=== PATIENT | female | born 1990 | race Hispanic/Latino ===

== ENCOUNTER 2021-07-26 16:30 | Outpatient (CLI) | payer BC, SELFPAY ==
--- NOTE | ~2021-07-26 | US_ITS ---
EXAMINATION: US OB follow up DATE: 07/26/2021 17:31 INDICATION: Establish dating and viability of an early second trimester . TECHNIQUE: Real-time pelvic ultrasound utilizing both a transvaginal and transabdominal probe was pe rformed. The interpreting radiologist was not present for the study. COMPARISON: None. FINDINGS: The uterus measures 12.4 x 11.4 x 9.3 cm. There is an intrauterine gestational sac. Gestational sac with a single fetus in transverse lie with vertex to maternal right. The crown rump length measures 8 .5 cm, which correlates with an estimated gestational age of 14 weeks and 3 days. heart motion is identified measuring 159 beats per minute (bpm) by M-mode Doppler. The placenta is posterior and l ow-lying with caudal margin 1.4 cm from the internal cervical os. The right and left ovaries are not visualized. There is no free fluid in the pelvis. IMPRESSION: 1. Single living fetus with heart rate of 159 bpm. 2. Gestational age by ultrasound of 14 weeks 3 day(s) +/- 1 week and 2 day(s) with ultrasound estima evangelist date of delivery (WILLIAM) of 01/21/2022. Reviewed, dictated and finalized at location A. [facility]NA[facility] PROCESS IMPRESSION: 1. Single living fetus with heart rate of 159 bpm. 2. Gestational age by ultrasound of 14 weeks 3 day(s) +/- 1 week and 2 day(s) with ultrasound estimated date of delivery (WILLIAM) of 01/21/2022.
== END 2021-07-26 16:31 | disposition home or self-care (01) ==
PROVIDERS: PCP Obstetrics & Gynecology; Visit Provider Obstetrics & Gynecology
DX: Z34.92 Encounter for supervision of normal pregnancy, unspecified, second trimester (principal); Z3A.14 14 weeks gestation of pregnancy
CPT/HCPCS: 76816

== ENCOUNTER 2022-01-09 03:56 | Inpatient (IN) | payer OTHER, SELFPAY ==
[2022-01-09] VITALS (117 sets, daily range): BP systolic 102–152; BP diastolic 61–112; PULSE 76–283; RESP 16–18; TEMP 36.2–37; O2SAT 95–100; BMI 28.0
[2022-01-09 04:36] LABS: Basophils Percent Auto 0.3 % (0.2-1.2); Eosinophils Absolute Auto 0.1 K/mm3 (0-0.3); Eosinophils Percent Auto 1.1 % (0-4.4); Hematocrit 41.4 % (37.0-47.0); Hemoglobin 13.7 g/dL (12.0-15.0); Immature Granulocyte Absolute 0.08 K/mm3 (0.00-0.031); Immature Granulocyte Percent A 0.7 % (0-0.5); Lymphocytes Absolute Auto 1.93 K/mm3 (0.9-3.2); Mean Corpuscular HGB Conc 33.1 g/dl (32-36); Mean Corpuscular Volume 87.7 fl (80-100); Mean Platelet Volume 10.1 fl (7.4-10.4); Monocytes Absolute Auto 0.7 K/mm3 (0.1-0.6); Monocytes Percent Auto 5.7 % (2.6-8.5); Neutrophils Absolute Auto 8.5 K/mm3 (1.3-6.7); Neutrophils Percent Auto 75.2 % (45.5-73.1); Platelet Count Result 266 k/mm3 (150-375); Red Blood Count 4.72 M/mm3 (4.2-5.4); Red Cell Distribution Width 13.7 % (11.5-14.5); White Blood Count 11.3 K/mm3 (4.5-10.0)
[2022-01-09] MEDS: LACTATED RINGERS 1,000 ML 125 ML IV CONT ×2 (05:00→06:24)
[2022-01-09 05:30] LABS: HIV 1/2 Ab P24 Ag Result Negative (Negative)
--- NOTE | 2022-01-09 05:36 | WPDANESEPP ---
Anes - Eval Pre Procedure Procedure: labor epidural Date/Time: 01/09/22 05:36 Surgeon: Claudio Preop Diagnosis: Abd pain with contractions Pre Op Diagnosis: Contractions Patient Data Age: 31 Gender: F Height: 1.52 m Weight: 65 kg Last Vital Signs Pulse 84 01/09/22 05:00 BP 147/87 H 01/09/22 05:00 Allergies Allergy/AdvReac Type Severity Reaction Status Date / Time shellfish derived Allergy Hives Verified 01/03/22 08:30 Home Medications Medication Instructions Recorded Confirmed Type prenat.vits,kristina,pqn-fjbg-qihon 1 tablet PO DAILY 06/28/21 11/21/21 History Laboratory Tests 01/09/22 01/09/22 01/09/22 04:31 04:31 04:31 WBC 11.3 K/mm3 H K/mm3 (4.5-10.0) RBC 4.72 M/mm3 M/mm3 (4.2-5.4) Hgb 13.7 g/dL g/dL (12.0-15.0) Hct 41.4 % % (37.0-47.0) MCV 87.7 fl fl (80-100) MCH 29.0 pg pg (26-34) MCHC 33.1 g/dl g/dl (32-36) RDW 13.7 % % (11.5-14.5) Plt Count 266 k/mm3 k/mm3 (150-375) MPV 10.1 fl fl (7.4-10.4) Immature Gran % (Auto) 0.7 % H % (0-0.5) Neut % (Auto) 75.2 % H % (45.5-73.1) Lymph % (Auto) 17.0 % L % (18.3-44.2) [place] % (Auto) 5.7 % % (2.6-8.5) Eos % (Auto) 1.1 % % (0-4.4) Baso % (Auto) 0.3 % % (0.2-1.2) Lymph # (Auto) 1.93 K/mm3 K/mm3 (0.9-3.2) [place] # (Auto) 0.7 K/mm3 H K/mm3 (0.1-0.6) Eos # (Auto) 0.1 K/mm3 K/mm3 (0-0.3) Baso # (Auto) 0.0 K/mm3 K/mm3 (0.0-0.1) Abs Immat Gran (auto) 0.08 K/mm3 H K/mm3 (0.00-0.031) Absolute Neuts (auto) 8.5 K/mm3 H K/mm3 (1.3-6.7) Absolute Nucleated RBC 0.0 K/mm3 K/mm3 (0.0-0.012) Nucleated RBC % 0.0 % % (0.0-0.2) RPR Pending HIV 1&2 Ab/P24 Ag 4thGn Negative (Negative) Blood Type Antibody Screen 01/09/22 04:31 WBC RBC Hgb Hct MCV MCH MCHC RDW Plt Count MPV Immature Gran % (Auto) Neut % (Auto) Lymph % (Auto) [place] % (Auto) Eos % (Auto) Baso % (Auto) Lymph # (Auto) [place] # (Auto) Eos # (Auto) Baso # (Auto) Abs Immat Gran (auto) Absolute Neuts (auto) Absolute Nucleated RBC Nucleated RBC % RPR HIV 1&2 Ab/P24 Ag 4thGn Blood Type O Positive Antibody Screen Pending Patient hx anesthesia problems: none Family hx anesthesia problems: none Results Review: All pre-operative results and documents have been reviewed as part of the pre-operative evaluation. [facility] Past Medical History Medical History (Updated 01/09/22 @ 05:37 by Killian Steward CRNA) No active medical problems and not yet delivered Surgical History Surgical History History of breast augmentation 2012, Implants Family History Family History Father Hypertension Cerebrovascular accident Social History Social History Smoking status: Never smoker Alcohol intake: current Substance use: never Spiritual care concerns: No Exam Day of Procedure 01/09/22 05:36 Patient weight: overweight Heart: regular rate and rhythm Airway: Mallampati scale class II Neurological: alert and oriented
--- NOTE | 2022-01-09 06:01 | LDADM ---
This patient, Sheeba Cagle, was admitted to Labor/Delivery/Recovery 103 on 01/09/22 at 03:56. Plans for labor, pain management and were discussed with patient. Patient/family oriented to hospital policies and general routines including ID bracelet, bed and alarms, visiting hours, pain management, procedures, bathroom and other care routines, personal items, smoking policy, room service/diet and guest tray routines, security routines, and visiting hours. Patient/Family are encouraged to report perceived risks to care and to ask questions if they do not understand what they are told or what they should do. See OBIX for further documentation.
[2022-01-09] MEDS: ONDANSETRON INJ 4 MG/2 ML VIAL IV PUSH (06:24)
[2022-01-09] MEDS: OXYTOCIN 30 UNITS/NS 500 ML 30 UNITS/500 ML BAG 6 UNITS IV CONT (07:49)
[2022-01-09 09:45] LABS: Rapid Plasma Reagin Non-Reactive (NonReactive)
--- NOTE | 2022-01-09 11:31 | PM.IMHP ---
H&P: HPI History of Present Illness Date/Time: 01/09/22 11:31 Patient is a 31yo LMP 04/11/21 currently 39w with WILLIAM 01/16/22 who presented to L&D with complaints of leakage of fluid and cramping. Patient is dated by LMP c/w US on 07/26/21. Patient reports leakage of fluid at approx. 3:00 a.m. Clear fluid noted. Reported feeling mild cramping as well, possible contractions. Denies any vaginal bleeding. Reports good movement. Patient was noted to be grossly ruptured at time of presentation. Decision made to admit to L&D. Chief Complaint: IUP at 39w PROM Review of Systems Review of Systems: All systems reviewed & are unremarkable except as noted in HPI and below Constitutional: Constitutional: Reports as per HPI, Reports no additional constitutional complaints, Denies chills, Denies fever(s), Denies headache(s) and Denies night sweats Eyes: Eyes: Reports as per HPI and Reports no additional eye complaints ENT: Reports system reviewed and no additional complaints, except as documented, Reports as per HPI, Reports Normal hearing present and Denies headache(s) Cardiovascular: Cardiovascular: Reports as per HPI, Reports no additional cardiovascular complaints, Denies chest pain and Denies dyspnea Respiratory: Respiratory: Reports as per HPI, Reports no additional respiratory complaints, Denies cough and Denies dyspnea Gastrointestinal: Gastrointestinal: Reports as per HPI, Reports no additional gastrointestinal complaints, Denies abdominal pain, Denies change in bowel habits, Denies change in stool character, Denies nausea and Denies vomiting Genitourinary: Genitourinary: Reports no additional female genitourinary complaints, Reports as per HPI, Denies abnormal vaginal bleeding, Denies genital lesions, Denies hot flashes, Denies dyspareunia, Denies pelvic pain, Denies sexual dysfunction, Denies urinary incontinence, Denies vaginal discharge, Denies vaginal dryness and Denies vaginal odor Musculoskeletal: Musculoskeletal: Reports no additional musculoskeletal complaints and Reports as per HPI Integumentary/Breasts: Skin/Breast: Reports system reviewed and no additional complaints, except as docu, Reports as per HPI, Denies breast pain and Denies nipple discharge Neurologic: Reports system reviewed and no additional complaints, except as documented, Reports as per HPI, Reports Normal hearing present and Denies headache(s) Psychiatric: Psychiatric: Reports no additional psychiatric complaints, Reports as per HPI, Denies anxiety and Denies depression Endocrine: Endocrine: Reports no additional endocrine complaints and Reports as per HPI Hematologic/Lymphatic: Hematologic/Lymphatic: Reports no additional hematologic/lymphatic complaints and Reports as per HPI Allergic/Immunologic: Allergic/Immunologic: Reports no additional allergic/immunologic complaints and Reports as per HPI PMFSH Past Medical History Medical History No active medical problems and not yet delivered Surgical History Surgical History History of breast augmentation 2012, Implants Family History Family History Father Hypertension Cerebrovascular accident Social History Social History Smoking status: Never smoker Alcohol intake: current Substance use: never Spiritual care concerns: No Meds Home Medications and Allergies Home Medications Medication Instructions Recorded Confirmed Type prenat.vits,kristina,drn-bajp-snisr 1 tablet PO DAILY 06/28/21 11/21/21 History Allergies Allergy/AdvReac Type Severity Reaction Status Date / Time shellfish derived Allergy Hives Verified 01/03/22 08:30 Vital Signs Vital Signs - 24 hr 01/09/22 04:30 01/09/22 04:45 01/09/22 05:00 Temperature Pulse Rate 84 93 84 Respiratory Rate
[2022-01-09] MEDS: OXYTOCIN 30 UNITS/NS 500 ML 30 UNITS/500 ML BAG 125 UNITS IV CONT (11:55)
--- NOTE | 2022-01-09 15:16 | PC.NURSE ---
[id number] Assisted in labor room 108. Introductions were made, then consulted with patient to assess needs related to . Mother led the conversation with her experience feeding her so far. Mother works well with her with much encouragement, reassurance and education. Encouraged understanding of the benefits of skin to skin placing vertically on her chest, responsive feeding and how to watch for early feeding signs, frequency of feeding on demand about every 8-12 times in 24 hours (every 2-3 hours), milk production, duration of feeding, signs of adequate intake/output and how to record on the feeding sheet. Reviewed positioning, supporting the breast, asymmetrical latch (off-center), and leading with the chin with a big open side gape. Attempts were made in cross cradle and football position to the left breast with no latching. Mother states her wrists are hurting and so we adjusted positioning. Mother voiced understanding of responsive feedings, stimulating with skin to skin, hand expressed colostrum, touch, talking to infant to encourage if it has been 2 -3 hours since the start of the last , to call if does not latch or there is discomfort with . Reported to the primary RN.
--- NOTE | 2022-01-09 19:56 | OBPPTRN ---
6611 Patient transferred to post room #288 via W/C. Support person present. Oriented to unit, room, information board, rooming in, admission packet and security measures. Patient verbalizes understanding.
[2022-01-09] MEDS: POLYSACCHARIDE IRON COMPLEX 150 MG CAPSULE PO (20:40)
[2022-01-09] MEDS: IBUPROFEN 600 MG TABLET PO (20:41)
--- NOTE | 2022-01-09 22:18 | PM.OBPRVD ---
OB - Delivery Note Procedure Delivery date: 01/09/22 Procedure: Spontaneous vaginal delivery Events: Other Intrapartal Events: Other (Premature rupture of membranes) Delivery augmentation: Pitocin Delivery monitor: External FHT Laceration Description: Vaginal Delivery repair: vicryl (3.0 vicryl) Specimen: No Quantitative Blood Loss (ml): 250 Anesthesia type: Epidural Disposition: Floor Complications: None Narrative: patient was admitted to Labor and delivery after having confirm rupture of membranes which occurred at 3:00 a.m. on 01/09/2022. Her contractions were irregular. At approximately 7:00 a.m. there was no change in her cervix and Pitocin was started for augmentation. She progressed to active labor and progressed to completely dilated. She pushed for approximately 20 minutes. And she delivered a female infant. Infant's nose and mouth were suction with bulb at the perineum. A tight nuchal cord was surgically reduced. The rest the infant was delivered. The infant was placed on maternal abdomen vigorously crying. There was noted to be terminal meconium. She did sustain a laceration at the introitus which was repaired with a [id number] 3 O Vicryl. This was done after the placenta delivered. The placenta delivered spontaneously and intact. EBL was 250 cc. Patient tolerated procedure well. Baby Date of : 01/09/22 Time of : 11:17 Weeks of gestation at delivery: 39 gender: Female Weight (pounds): 6 Weight (ounces): 2 presentation: vertex position: Right Occiput Anterior Placenta delivery description: Spontaneous Cord Vessel Description: Tight and Reduced (surgically) score one minute: 6 score five minutes: 8 AMG Delivery Billing Delivery Delivery: Delivery Charge
[2022-01-10 04:00] VITALS: BP 118/77; PULSE 46; PULSE 96; RESP 16; TEMP 36.9; O2SAT 100
[2022-01-10 05:02] LABS: Hemoglobin 11.7 g/dL (12.0-15.0)
[2022-01-10 07:55] VITALS: BP 127/90; PULSE 80; RESP 16; TEMP 36.6; O2SAT 99
[2022-01-10] MEDS: DOCUSATE SODIUM 100 MG CAPSULE PO (08:07)
[2022-01-10] MEDS: MULTIVIT/MIN/PREN/FOL AC/IRON TABLET 1 TAB PO (08:10)
[2022-01-10] MEDS: IBUPROFEN 600 MG TABLET PO (08:11)
--- NOTE | 2022-01-10 09:09 | WPDANLDPN2 ---
Anes-Prog Note L&D Date/Time: 01/10/22 09:09 Comfortable throughout: labor (pain throughout) and delivery Neuraxial method: epidural Neuro status: Neuro function grossly intact. Cardiovascular status: normal Respiratory status: normal Airway patency: baseline Mental status: baseline Post-Op hydration status: normal Vital Signs: Last Vital Signs Temp 98.4 F 01/10/22 04:00 Pulse 96 01/10/22 04:00 Resp 16 01/10/22 04:00 BP 118/77 01/10/22 04:00 Pulse Ox 100 01/10/22 04:00 Pain score (VAS): 0 Post-procedural complaints: none Patient feedback: Patient satisfied with anesthetic care. poor pain management throughout.
--- NOTE | 2022-01-10 09:46 | PM.OBPNVD ---
OB - PN: Subj Subjective Date/time seen: 01/10/22 09:46 Patient doing well this morning. Reports mild cramping, alleviated with medication. Minimal lochia. Ambulating without difficulty. Voiding well. OB - PN: Obj Data Labs CBC & Chem 7: 01/10/22 04:10 Labs: Laboratory Results - last 24 hr 01/10/22 04:10 Hgb 11.7 L Hct 37.0 OB - PN A/P Assessment and Plan (1) Normal spontaneous vaginal delivery: Code(s): O80 - Encounter for full-term uncomplicated delivery Status: Acute Assessment and Plan: PPD#1 doing well continue routine care requesting dc home today if infant cleared emergency precautions reviewed f/u in office in 4-6 weeks for visit Time Spent With Patient Time: Total time spent is greater than 50% in coordination of care (as documented) at patient's floor/unit and/or counseling patient: Exam Const: General: cooperative, healthy appearing, comfortable and no acute distress GI: Inspection: non-distended GI Palp: Yes Soft to palpation and No Tenderness to palpation present (GI) Other: fundus firm below umbilicus Extrem: Right lower extremity: no edema Left lower extremity: no edema Other: no calf tenderness
--- NOTE | 2022-01-10 09:53 | PM.OBDSVD ---
DS: Admitting Diagnosis Discharge Date 01/10/22 Admitting Diagnosis IUP at 39w PROM OB - DS: Summary OB Procedures : None OB Procedures Intrapartum: Spontaneous Vag Delivery OB Procedures: : None Time Spent with Patient Time attestation: Total time spent providing and/or coordinating discharge services: DS: Data Data Completed and Pending Labs on day of discharge: Labs from last 24 hours 01/10/22 04:10 Hgb 11.7 L Hct 37.0 Discharge Plan Discharge Attending physician on discharge: Miryam Snyder Discharging Clinician: Miryam Snyder Anticipated Discharge Date/Time: 01/10/22 09:54 Patient Disposition: Home, Self-Care Activity: as tolerated and pelvic rest Diet: regular Discharge Instructions: Call office ([phone]) to schedule a visit in 4-6 weeks. You may take Ibuprofen 600mg every 6 hours as needed for pain. Pain medication may make you constipated. It may be helpful to take an zhqi-kto-[id number] stool softener, such as Colace and/or Senokot, along with the pain medication to help lessen constipation. Call office or go to ED for pain not controlled with medication, headache, chest pain, shortness of breath, fever, chills, persistent nausea or vomiting, severe abdominal pain, heavy vaginal bleeding >2 pads/hour, foul vaginal discharge or odor, or problems with your breasts. Patient Instructions: Antibiotic Form Stand Alone Forms: General Discharge Information Follow-up/Referrals: Miryam Snyder MD [Physician] - Discharge Medications: Continued prenat.vits,kristina,eyx-bido-buwru Tablet 1 tablet PO DAILY RF: 0 Date of admission: 01/09/22 03:56 Primary Care Provider: PHYSICIAN,DIGITAL MARKETING MANAGER Admitting Provider: Miryam Snyder Attending physician on admission: Miryam Snyder Condition: Stable
[2022-01-10] MEDS: MEASLES,MUMPS,RUBELLA VACCINE 0.5 ML VIAL SUB-Q (14:54)
--- NOTE | 2022-01-10 18:38 | PC.NURSE ---
1100 Patient viewed the discharge video Mother & Baby Care, The First Two Weeks . Patient was given the opportunity and encouraged to ask questions. Patient verbalized understanding of information shared and has been given the mother/baby guide for home reference.
[2022-01-11 11:04] VITALS: BP 118/80; PULSE 76; RESP 16; TEMP 37.5; O2SAT 100
== END 2022-01-10 16:40 | disposition home or self-care (01) | DRG 807 ==
LOC: ANHLDR 05:06 → ANHOB2 15:00
PROVIDERS: Admitting Provider Obstetrics & Gynecology; Visit Provider Student in an Organized Health Care Education/Training Program
DX: O42.92 Full-term premature rupture of membranes, unspecified as to length of time between rupture and onset of labor (principal); Z37.0 Single live birth; O69.1XX0 Labor and delivery complicated by cord around neck, with compression, not applicable or unspecified; O77.0 Labor and delivery complicated by meconium in amniotic fluid; O70.0 First degree perineal laceration during delivery; Z3A.39 39 weeks gestation of pregnancy
CPT/HCPCS: 36415; 84112; 85014; 85018; 85025; 86592; 86703; 86850; 86900; 86901; 90710; A9270; G0432; J2405; J2590; J2795; J7120

== ENCOUNTER 2024-05-23 16:40 | Inpatient (IN) | payer OTHER, SELFPAY ==
[2024-05-23] VITALS (18 sets, daily range): BP systolic 114–131; BP diastolic 74–97; PULSE 75–96; TEMP 36.5–37.2; BMI 26.1
--- NOTE | 2024-05-23 18:17 | LDADM ---
This patient, Sheeba Cagle, was admitted to Labor/Delivery/Recovery 106 on 05/23/24 at 16:40. Plans for labor, pain management and were discussed with patient. Patient/family oriented to hospital policies and general routines including ID bracelet, bed and alarms, visiting hours, pain management, procedures, bathroom and other care routines, personal items, smoking policy, room service/diet and guest tray routines, security routines, and visiting hours. Patient/Family are encouraged to report perceived risks to care and to ask questions if they do not understand what they are told or what they should do. See OBIX for further documentation.
[2024-05-23 18:22] LABS: Basophils Percent Auto 0.2 % (0.2-1.2); Eosinophils Absolute Auto 0.1 K/mm3 (0-0.3); Eosinophils Percent Auto 1.4 % (0-4.4); Hematocrit 39.1 % (37.0-47.0); Hemoglobin 13.1 g/dL (12.0-15.0); Immature Granulocyte Absolute 0.03 K/mm3 (0.00-0.031); Immature Granulocyte Percent A 0.3 % (0-0.5); Lymphocytes Absolute Auto 1.79 K/mm3 (0.9-3.2); Lymphocytes Percent Auto 20.3 % (18.3-44.2); Mean Corpuscular HGB Conc 33.5 g/dl (32-36); Mean Corpuscular Hemoglobin 28.7 pg (26-34); Mean Corpuscular Volume 85.7 fl (80-100); Mean Platelet Volume 10.3 fl (7.4-10.4); Monocytes Absolute Auto 0.8 K/mm3 (0.1-0.6); Monocytes Percent Auto 9.4 % (2.6-8.5); Neutrophils Percent Auto 68.4 % (45.5-73.1); Platelet Count Result 247 k/mm3 (150-375); Red Blood Count 4.56 M/mm3 (4.2-5.4); Red Cell Distribution Width 13.7 % (11.5-14.5); White Blood Count 8.8 K/mm3 (4.5-10.0)
[2024-05-23 18:33] LABS: Alanine Aminotransferase 17 U/L (6-35); Albumin Level 3.6 g/dL (3.5-5.1); Alkaline Phosphatase 155 U/L (38-126); Anion Gap 10 mmol/L (4-12); Aspartate Amino Transferase 26 U/L (14-36); Bilirubin,Total 0.2 mg/dL (0.2-1.3); Blood Urea Nitrogen 16 mg/dL (7-17); Calcium 9.1 mg/dL (8.4-10.2); Carbon Dioxide 20 mmol/L (22-30); Chloride 104 mmol/L (98-107); Estimated Glomerular Filt Rate > 60; Glucose 93 mg/dL (65-110); Potassium 3.9 mmol/L (3.4-5.0); Sodium 134 mmol/L (137-145); Uric Acid 4.3 mg/dL (2.5-7.5)
[2024-05-23 18:53] LABS: Rapid Plasma Reagin Non-Reactive (NonReactive)
--- NOTE | 2024-05-23 19:05 | WPDANESEPP ---
Anes - Eval Pre Procedure Procedure: labor epidural Date/Time: 05/23/24 19:05 Surgeon: elenita Preop Diagnosis: pain during labor Pre Op Diagnosis: Labor, Ruptured Patient Data Age: 33 Gender: F Height: Weight: Last Vital Signs Temp 37.2 C 05/23/24 17:30 Pulse 81 05/23/24 18:45 BP 126/85 05/23/24 18:45 O2 Del Method Room Air 05/23/24 18:13 Allergies Allergy/AdvReac Type Severity Reaction Status Date / Time shellfish derived Allergy Hives Verified 05/20/24 16:10 Home Medications Medication Instructions Recorded Confirmed Type prenat.vits,kristina,brw-glsc-ybqmh 1 tablet PO DAILY 06/28/21 05/20/24 History Laboratory Tests 05/23/24 05/23/24 18:08 18:08 WBC 8.8 K/mm3 (4.5-10.0) RBC 4.56 M/mm3 (4.2-5.4) Hgb 13.1 g/dL (12.0-15.0) Hct 39.1 % (37.0-47.0) MCV 85.7 fl (80-100) MCH 28.7 pg (26-34) MCHC 33.5 g/dl (32-36) RDW 13.7 % (11.5-14.5) Plt Count 247 k/mm3 (150-375) MPV 10.3 fl (7.4-10.4) Immature Gran % (Auto) 0.3 % (0-0.5) Neut % (Auto) 68.4 % (45.5-73.1) Lymph % (Auto) 20.3 % (18.3-44.2) [place] % (Auto) 9.4 H % (2.6-8.5) Eos % (Auto) 1.4 % (0-4.4) Baso % (Auto) 0.2 % (0.2-1.2) Lymph # (Auto) 1.79 K/mm3 (0.9-3.2) [place] # (Auto) 0.8 H K/mm3 (0.1-0.6) Eos # (Auto) 0.1 K/mm3 (0-0.3) Baso # (Auto) 0.0 K/mm3 (0.0-0.1) Abs Immat Gran (auto) 0.03 K/mm3 (0.00-0.031) Absolute Neuts (auto) 6.0 K/mm3 (1.3-6.7) Absolute Nucleated RBC 0.000 K/mm3 (0.0-0.012) Nucleated RBC % 0.0 % (0.0-0.2) Sodium 134 L mmol/L (137-145) Potassium 3.9 mmol/L (3.4-5.0) Chloride 104 mmol/L (98-107) Carbon Dioxide 20 L mmol/L (22-30) Anion Gap 10 mmol/L (4-12) BUN 16 mg/dL (7-17) Creatinine 0.60 L mg/dL (0.7-1.0) Estim Creat Clear Calc Not Reportable Estimated GFR > 60 (59 - ) Glucose 93 mg/dL (65-110) Uric Acid Cancelled 4.3 mg/dL (2.5-7.5) Calcium 9.1 mg/dL (8.4-10.2) Total Bilirubin 0.2 mg/dL (0.2-1.3) AST 26 U/L (14-36) ALT 17 U/L (6-35) Alkaline Phosphatase 155 H U/L (38-126) Total Protein 7.0 g/dL (6.3-8.2) Albumin 3.6 g/dL (3.5-5.1) RPR Non-reactive (NonReactive) HIV 1&2 Ab/P24 Ag 4thGn Pending Blood Type O Positive Antibody Screen Pending Patient hx anesthesia problems: none Family hx anesthesia problems: none Results Review: All pre-operative results and documents have been reviewed as part of the pre-operative evaluation. [facility] Past Medical History Medical History History of vaginal delivery No active medical problems Surgical History Surgical History History of breast augmentation 2012, Implants Family History Family History Father Hypertension Cerebrovascular accident Social History Social History Smoking status: Never smoker Second hand tobacco smoke exposure: No Alcohol intake: current Alcohol use details: socially Substance use: never Substance use type: does not use Do You Feel Safe in your Home?: Yes Lack of Transportation: No Lack of Food: Never True Current Housing: I Have Housing Concerned About Future Housing: No Difficulty Paying Gas/Electric Bills: No Difficulty Paying for Meds: No Currently Unemployed: No Education: Bachelor's Degree Difficulty w/ Childcare or Family Care: No Living arrangements: with family Occupation/Education: occupation 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
[2024-05-23 19:38] LABS: HIV 1/2 Ab P24 Ag Result Negative (Negative)
[2024-05-23] MEDS: LACTATED RINGERS 1,000 ML 125 ML IV CONT (21:17)
[2024-05-23] MEDS: OXYTOCIN 30 UNITS/NS 500 ML 30 UNITS/500 ML BAG IV CONT (21:18)
[2024-05-24] VITALS (73 sets, daily range): BP systolic 91–148; BP diastolic 50–95; PULSE 69–148; RESP 18; TEMP 36.6–37.2; O2SAT 91–99
[2024-05-24] MEDS: LACTATED RINGERS 1,000 ML 125 ML IV CONT (00:57)
--- NOTE | 2024-05-24 04:44 | PM.OBPRVD ---
OB - Vaginal Delivery Note Procedure Delivery date: 05/24/24 Events: Other (Premature rupture of membranes) Induction method: None Delivery augmentation: Pitocin Delivery monitor: External FHT Episiotomy description: None Laceration Description: None Quantitative Blood Loss (ml): 150 Anesthesia type: Epidural Disposition: Floor Complications: No immediate complications Narrative: She was admitted for SROM at 250pm. Cervix 4 cm. She was managed expectantly. She had not progressed to active labor after greater than 6 hours from ROM. Pitocin augmentation started. Forebag spontaneously ruptured. She progressed into active labor and delivered a male . Nose and mouth suctioned at perineum. Loose nuchal cord manually reduced. Right compound hand presentation. vigorously crying and placed on maternal abdomen. Delayed cord clamping until cord apulsatile, approximately one minute and cord double clamped and cut. Pitocin started. Placenta delivered spontaneously and intact. Baby Date of : 05/24/24 Time of : 04:29 Gestational Age by Date: 38 Infant gender: Male presentation: vertex position: Right Occiput Anterior Placenta delivery description: Spontaneous Cord Vessel Description: 3 Vessels, Nuchal Cord, Loose, Reduced (manually) and Delayed Cord Clamping score one minute: 9 score five minutes: 9
--- NOTE | 2024-05-24 04:52 | PM.IMHP ---
H&P: HPI History of Present Illness Date/Time: 05/24/24 04:52 Chief Complaint: Leaking of fluid Narrative: 33 y/o at 38 5 admitted for SROM clear. Cervix 4cm unchanged from office visit. Irregular contractions. PNC uncomplicated. GBS neg. Review of Systems Review of Systems: All systems reviewed & are unremarkable except as noted in HPI and below Constitutional: Constitutional: Reports no additional constitutional complaints and Denies headache(s) Eyes: Eyes: Denies spots in vision ENT: Reports system reviewed and no additional complaints, except as documented and Denies headache(s) Cardiovascular: Cardiovascular: Denies chest pain and Denies dyspnea Respiratory: Respiratory: Denies dyspnea Gastrointestinal: Gastrointestinal: Reports no additional gastrointestinal complaints Genitourinary: Genitourinary: Reports amenorrhea Musculoskeletal: Musculoskeletal: Reports no additional musculoskeletal complaints Integumentary/Breasts: Skin/Breast: Denies breast mass and Denies rash Neurologic: Denies headache(s) Psychiatric: Psychiatric: Reports no additional psychiatric complaints [facility] Past Medical History Medical History History of vaginal delivery No active medical problems Surgical History Surgical History History of breast augmentation 2012, Implants Family History Family History Father Hypertension Cerebrovascular accident Social History Social History Smoking status: Never smoker Second hand tobacco smoke exposure: No Alcohol intake: current Alcohol use details: socially Substance use: never Substance use type: does not use Do You Feel Safe in your Home?: Yes Lack of Transportation: No Lack of Food: Never True Current Housing: I Have Housing Concerned About Future Housing: No Difficulty Paying Gas/Electric Bills: No Difficulty Paying for Meds: No Currently Unemployed: No Education: Bachelor's Degree Difficulty w/ Childcare or Family Care: No Living arrangements: with family Occupation/Education: occupation Additional occupation/education comments: [employer] Gender identity (if verbalized by the patient): Female Sexual Orientation (if Verbalized by the Patient): Straight or Heterosexual Spiritual care concerns: No Meds Home Medications and Allergies Home Medications Medication Instructions Recorded Confirmed Type prenat.vits,kristina,[id number] 1 tablet PO DAILY 06/28/21 05/20/24 History Allergies Allergy/AdvReac Type Severity Reaction Status Date / Time shellfish derived Allergy Hives Verified 05/23/24 19:19 Vital Signs Vital Signs - 24 hr 05/23/24 17:45 05/23/24 17:30 05/23/24 18:30 Temperature 98.9 F 97.7 F Pulse Rate 84 78 Blood Pressure 131/88 130/91 H Pulse Oximetry Oxygen Delivery 05/23/24 18:45 05/23/24 20:45 05/23/24 20:30 Temperature 98.7 F Pulse Rate 81 82 Blood Pressure 126/85 126/82 Pulse Oximetry Oxygen Delivery 05/23/24 21:00 05/23/24 21:15 05/23/24 21:30 Temperature Pulse Rate 87 80 89 Blood Pressure 120/85 114/78 122/79 Pulse Oximetry Oxygen Delivery 05/23/24 21:45 05/23/24 22:00 05/23/24 22:15 Temperature Pulse Rate 78 84 84 Blood Pressure 117/74 122/78 118/80 Pulse Oximetry Oxygen Delivery 05/23/24 22:30 05/23/24 22:45 05/23/24 23:00 Temperature 98.1 F Pulse Rate 75 83 90 Blood Pressure 119/82 120/81 129/84 Pulse Oximetry Oxygen Delivery 05/23/24 23:15 05/23/24 23:30 05/23/24 23:45 Temperature Pulse Rate 79 81 96 Blood Pressure 130/83 130/97 H 122/89 Pulse Oximetry Oxygen Delivery 05/24/24 00:15 05/24/24 00:30 05/24/24 00:45 Temperature 98.1 F Pulse Rate 91 73 79 Blo
[2024-05-24] MEDS: OXYTOCIN 30 UNITS/NS 500 ML 30 UNITS/500 ML BAG 125 UNITS IV CONT (05:04)
--- NOTE | 2024-05-24 07:55 | OBPPTRN ---
Patient transferred to post room #291 via wheelchair. Support person present. Oriented to unit, room, information board, rooming in, admission packet and security measures. Patient verbalizes understanding.
[2024-05-24] MEDS: MULTIVIT/MIN/PREN/FOL AC/IRON TABLET 1 TAB PO (09:55)
[2024-05-24] MEDS: IBUPROFEN 600 MG TABLET PO ×2 (09:56→16:38)
[2024-05-25] MEDS: IBUPROFEN 600 MG TABLET PO ×2 (00:48→08:07)
[2024-05-25 03:48] LABS: Hematocrit 33.1 % (37.0-47.0); Hemoglobin 11.1 g/dL (12.0-15.0)
[2024-05-25 05:15] VITALS: BP 109/77; PULSE 77; RESP 18; TEMP 36.9; O2SAT 99
[2024-05-25 07:49] VITALS: BP 114/82; PULSE 80; RESP 18; TEMP 37.1; O2SAT 100
[2024-05-25] MEDS: MULTIVIT/MIN/PREN/FOL AC/IRON TABLET 1 TAB PO (08:07)
[2024-05-25] MEDS: DOCUSATE SODIUM 100 MG CAPSULE PO (08:07)
--- NOTE | 2024-05-25 10:44 | PM.OBPNVD ---
OB - PN: Subj Subjective Date/time seen: 05/25/24 10:44 Patient comments: pain well controlled, tolerating diet and other (Decreasing lochia.) baby status: doing well and nursing well [place] feeding status: exclusively breast feeding OB - PN: Obj Data Labs 05/25/24 03:31 05/23/24 18:08 Labs: Laboratory Results - last 24 hr 05/25/24 03:31 Hgb 11.1 L Hct 33.1 L OB - PN A/P Plan day: 1 Plan: routine care Comments: Patient doing well. Request discharge to home. Time Spent With Patient Time: Total time spent is greater than 50% in coordination of care (as documented) at patient's floor/unit and/or counseling patient: Exam Const: General: no acute distress Resp: Effort & Inspection: normal respiratory effort Psych: Affect: normal affect Other: Abd: fundus firm below umbilicus, nontender Ext: nontender
--- NOTE | 2024-05-25 10:46 | PM.OBDSVD ---
DS: Admitting Diagnosis Discharge Date 05/25/24 Admitting Diagnosis Spontaneous rupture of membranes DS: Discharge Diagnosis Discharge Diagnosis (1) Vaginal delivery: Code(s): O80 - Encounter for full-term uncomplicated delivery Status: Acute OB - DS: Summary Hospital Course Hospital Course: She was admitted for spontaneous rupture of membranes. Labor augmented with Pitocin. She had an uncomplicated vaginal delivery. She did well . Baby did well . She had adequate pain control and was tolerating regular diet, and had decrease lochia. She was discharged to home on post day 1. OB Procedures : Ultrasound OB Procedures Intrapartum: Spontaneous Vag Delivery OB Procedures: : None Peripartum Data Delivery Method: Natural Vaginal Laceration Description: None Episiotomy description: None complications: none Status at Discharge Functional status at discharge: independent ambulation Time Spent with Patient Time attestation: Total time spent providing and/or coordinating discharge services: Exam Const: General: cooperative Orientation/consciousness: oriented to person, oriented to place and oriented to time HENMT: Face/Nose/Sinus: Normal external nose present Eyes: General: appearance normal, both eyes and all related structures Resp: Effort & Inspection: normal respiratory effort GI: Inspection: normal to inspection Skin: General skin exam: normal color Neuro: General: oriented to person, oriented to place and oriented to time Extrem: General: normal to inspection and no calf tenderness Psych: Appearance: grossly normal DS: Data Data Completed and Pending Labs on day of discharge: Labs from last 24 hours 05/25/24 03:31 Hgb 11.1 L Hct 33.1 L Discharge Plan Discharge Attending physician on discharge: Charity Whitman Consulting providers: Myriam Tristan Discharging Clinician: Иван Bowman Anticipated Discharge Date/Time: 05/25/24 10:45 Patient Disposition: Home, Self-Care Activity: may shower and pelvic rest Diet: regular Patient Instructions: Antibiotic Form Stand Alone Forms: General Discharge Information Follow-up/Referrals: Charity Whitman MD [Physician] - Call for Appointment Discharge Medications: No Action prenat.vits,kristina,[id number] Tablet 1 tablet PO DAILY Date of admission: 05/23/24 16:40 Primary Care Provider: PHYSICIAN,SHOE COVERER Admitting Provider: Charity Whitman Attending physician on admission: Charity Whitman Condition: Stable
--- NOTE | 2024-05-25 13:01 | WPDANLDPN2 ---
Anes-Prog Note L&D Date/Time: 05/25/24 13:01 Comfortable throughout: labor and delivery Neuraxial method: epidural Epidural/Spinal procedure site: tender Neuro status: Neuro function grossly intact. Cardiovascular status: normal Respiratory status: normal Airway patency: baseline Mental status: baseline Post-Op hydration status: normal Vital Signs: Last Vital Signs Temp 37.1 C 05/25/24 07:49 Pulse 80 05/25/24 07:49 Resp 18 05/25/24 07:49 BP 114/82 05/25/24 07:49 Pulse Ox 100 05/25/24 07:49 O2 Del Method Room Air 05/25/24 07:58 Pain score (VAS): 3/10 I/O: Intake & Output 05/24/24 05/25/24 05/25/24 23:59 07:59 15:59 Intake Total 240 Balance 240 Post-procedural complaints: none Patient feedback: Patient satisfied with anesthetic care.
[2024-05-26 08:31] VITALS: BP 121/79; PULSE 78; RESP 18; TEMP 37; O2SAT 100
[2024-05-26 14:24] LABS: OBXCEM ROM Plus Positive (Negative)
== END 2024-05-25 14:45 | disposition home or self-care (01) | DRG 807 ==
LOC: ANHLDR 17:49 → ANHOB2 05-25 10:46 → ANHLDR 05-27 11:50 → ANHOB2 05-27 11:50
PROVIDERS: Admitting Provider Obstetrics & Gynecology; Visit Provider Obstetrics & Gynecology
DX: O42.02 Full-term premature rupture of membranes, onset of labor within 24 hours of rupture (principal); Z37.0 Single live birth; Z3A.38 38 weeks gestation of pregnancy; O69.81X0 Labor and delivery complicated by cord around neck, without compression, not applicable or unspecified; O32.6XX0 Maternal care for compound presentation, not applicable or unspecified
CPT/HCPCS: 36415; 80053; 84112; 84550; 85014; 85018; 85025; 86592; 86703; 86850; 86900; 86901; A9270; G0432; J2590; J2795; J7120